=== PATIENT | female | born 1960 | race Caucasian/White ===

== ENCOUNTER 2022-05-12 07:10 | Emergency (ER) | payer MEDICAID, OTHER ==
[~2022-05-12] VITALS: Ht 162.6 cm; Wt 72.7 kg
[~2022-05-12 07:10] MED LIST: VICOT PO
[2022-05-12] MEDS ORDERED: htn med PO (07:16)
[2022-05-12] MEDS ORDERED: [UNRECOGNIZED DRUG - OTHER] PO (07:16)
[2022-05-12 07:40] VITALS: BP 166/87
[2022-05-12] MEDS ORDERED: LIDOCAINE 5% TRANSDERMAL PATCH TD ONE (07:45)
[2022-05-12] MEDS ORDERED: KETOROLAC TROMETHAMINE 30 MG/ML VIAL IM ONE (07:45)
[2022-05-12] MEDS ORDERED: LIDO700A15 TP (07:45)
[2022-05-12] MEDS ORDERED: ACETAMINOPHEN 500 MG TABLET PO ONE (07:45)
== END 2022-05-12 07:58 | disposition home or self-care (01) ==
LOC: EMS 07:14
DX: S39.012A Strain of muscle, fascia and tendon of lower back, initial encounter (principal); E11.9 Type 2 diabetes mellitus without complications; I10 Essential (primary) hypertension; X58.XXXA Exposure to other specified factors, initial encounter; Y93.89 Activity, other specified; Y92.89 Other specified places as the place of occurrence of the external cause; Y99.8 Other external cause status
CPT/HCPCS: 99283; 96372; J1885

== ENCOUNTER 2023-07-11 21:46 | Emergency (ER) | payer MEDICAID ==
[~2023-07-11] VITALS: Ht 152.4 cm; Wt 72.7 kg
[~2023-07-11 21:46] MED LIST changes: +LIDO700A15 TP; -VICOT PO; +[UNRECOGNIZED DRUG - OTHER] PO; +htn med PO
[2023-07-11 22:13] VITALS: TEMP 98
[2023-07-11 22:27] LABS: GLUCOMETER DEV NAME(LOC) ERT.5; GLUCOSE,POINT OF CARE 121 MG/DL (70-110)
[2023-07-11] MEDS ORDERED: HYDR25TA2 PO (23:58)
[2023-07-12 00:59] VITALS: BP 148/89; PULSE 51; RESP 19
== END 2023-07-12 01:15 | disposition home or self-care (01) ==
LOC: EMS 21:47
DX: I10 Essential (primary) hypertension (principal); E11.9 Type 2 diabetes mellitus without complications
CPT/HCPCS: 82962; 99283